=== PATIENT | female | born 1965 ===

== ENCOUNTER 2018-10-27 17:20 | Emergency (ER) | payer OTHER ==
[~2018-10-27] VITALS: Ht 160 cm; Wt 59.0 kg
[2018-10-27] MEDS ORDERED: PANADOL EXTRA500 MG (17:40)
== END 2018-10-27 22:26 | disposition home or self-care (01) ==
LOC: ER 17:20
DX: M12.561 Traumatic arthropathy, right knee (principal); W10.8XXS Fall (on) (from) other stairs and steps, sequela; M54.5 Low back pain